=== PATIENT | male | born 1990 | race Caucasian/White ===

== ENCOUNTER 2018-09-26 17:42 | Emergency (ER) | payer BC ==
[2018-09-26 18:42] VITALS: BP 120/75
[2018-09-26] MEDS ORDERED: Amoxicillin PO (*) 500 MG CAP PO ONE (19:42)
--- NOTE | 2018-09-26 19:47 | UC ---
Throat Pain/Nasal Joey HPI - HPI Summary HPI Summary: sore throat and body aches for a few days--- had strep last week and he works at [employer] - History of Current Complaint Chief Complaint: UCRespiratory Stated Complaint: SORE THROAT,CONGESTION Time Seen by Provider: 09/26/18 19:41 Hx Obtained From: Patient Onset/Duration: Sudden Onset, Lasting Days - 4 Pain Intensity: 3 Pain Scale Used: 0-10 Numeric Cough: None - Allergies/Home Medications Allergies/Adverse Reactions: Allergies Allergy/AdvReac Type Severity Reaction Status Date / Time peanut, sesame intolerence AdvReac Diarrhea Uncoded 09/26/18 18:29 Home Medications: Home Medications Afrin Nasal [place] 2 spray BOTH NARES DAILY PRN 09/26/18 [History Confirmed 09/26] Bismuth Subsalicylate [Pepto-Bismol] 525 mg PO SEE INSTRUCTIONS PRN 09/26/18 [ History Confirmed 09/26/18] Fluticasone-Salmeterol 250-50* [Advair Diskus 250-50*] 1 puff INH BID PRN [History Confirmed 09/26/18] Montelukast Sodium TAB* [Singulair 10 MG TAB*] 10 mg PO DAILY PRN 09/26/18 [ History Confirmed 09/26/18] PMH/Surg Hx/FS Hx/Imm Hx Previously Healthy: No Respiratory History: Asthma - Surgical History Surgical History: Yes Surgery Procedure, Year, and Place: cranial stenosis as - Family History Known Family History: Positive: None - Social History Occupation: Employed Full-time Lives: With Family Alcohol Use: None Substance Use Type: None Smoking Status (MU): Never Smoked Tobacco Review of Systems All Other Systems Reviewed And Are Negative: Yes Constitutional: Positive: Chills, Fatigue Skin: Positive: Negative Eyes: Positive: Negative ENT: Positive: Sore Throat Respiratory: Positive: Negative Cardiovascular: Positive: Negative Gastrointestinal: Positive: Negative Genitourinary: Positive: Negative Motor: Positive: Negative Neurovascular: Positive: Negative Musculoskeletal: Positive: Negative Neurological: Positive: Negative Psychological: Positive: Negative Is Patient Immunocompromised?: No Physical Exam Triage Information Reviewed: Yes Appearance: Well-Appearing, No Pain Distress, Well-Nourished Vital Signs: Initial Vital Signs Temp 97.8 F 09/26/18 18:34 Pulse 76 09/26/18 18:34 Resp 20 09/26/18 18:34 BP 120/75 09/26/18 18:34 Pulse Ox 98 09/26/18 18:34 Vital Signs Reviewed: Yes Eye Exam: Normal Eyes: Positive: Conjunctiva Clear ENT Exam: Normal ENT: Positive: Normal ENT inspection, Hearing grossly normal, Pharyngeal erythema, TMs normal, Uvula midline. Negative: Nasal congestion, Tonsillar swelling, Trismus, Muffled voice, Hoarse voice, Dental tenderness, Sinus tenderness Dental Exam: Normal Neck exam: Normal Neck: Positive: Supple, Nontender, No Lymphadenopathy Respiratory Exam: Normal Respiratory: Positive: Chest non-tender, Lungs clear, Normal breath sounds, No respiratory distress, No accessory muscle use Cardiovascular Exam: Normal Cardiovascular: Positive: RRR, Pulses Normal, Brisk Capillary Refill Musculoskeletal Exam: Normal Musculoskeletal: Positive: Strength Intact, ROM Intact, No Edema Neurological Exam: Normal Neurological: Positive: Alert, Muscle Tone Normal Psychological Exam: Normal Skin Exam: Normal Diagnostics - Laboratory Diagnostic Studies Completed/Ordered: rst (+) Throat Pain/Nasal Course/Dx - Course Assessment/Plan: amoxicillin, tylenol/ibuprofen prn pain, rest increase fluids follow with pcp prn - Differential Dx/Diagnosis Provider Diagnosis: Streptococcal pharyngitis Discharge - Sign-Out/Discharge Documenting (check all that apply): Patient Departure All imaging exams completed and their final reports reviewed: No Studies - Discharge Plan Condition: Stable Disposition: HOME Prescriptions: Amoxicillin PO (*) [Amoxicillin 875 MG (*)] 875 mg PO BID #20 tab Patient Education Materials: Strep Throat (ED) Forms: *Work Release Referrals: Justice Rangel PA [Primary Care Provider] - If Needed - Billing Disposition and Condition Condition: STABLE Disposition: Home
== END 2018-09-26 20:15 | disposition home or self-care (01) ==
LOC: UCCORT 17:42
DX: J02.0 Streptococcal pharyngitis (principal); J45.909 Unspecified asthma, uncomplicated; Z91.010 Allergy to peanuts; Z79.899 Other long term (current) drug therapy
CPT/HCPCS: 87651; 99202; A9270-GY; G0463